=== PATIENT | female | born 1955 | race Caucasian/White ===

== ENCOUNTER 2022-07-10 13:05 | Outpatient (CLI) | payer OTHER, SELFPAY | END 2022-07-10 13:06 | disposition home or self-care (01) | PROVIDERS: Visit Provider Student in an Organized Health Care Education/Training Program | DX: R30.0 Dysuria (principal); N39.0 Urinary tract infection, site not specified | CPT/HCPCS: 87086; 87186 ==

== ENCOUNTER 2022-08-07 15:40 | Emergency (ER) | payer MEDICAID, SELFPAY ==
[2022-08-07 15:41] VITALS: BP 138/89; PULSE 104; RESP 18; TEMP 36.4; O2SAT 93; BMI 25.8
--- NOTE | 2022-08-07 15:53 | CRLHL7_ITS ---
For Patients: As a result of the Cures Act, medical imaging exams and procedure reports are released immediately into your electronic medical record. You may view this report before your referring provider. If you have questions, please contact your health care provider. Indication: Fall Technique: Volumetric multidetector CT images of the cervical spine were obtained without the administration of IV contrast. Comparison: CT cervical spine September 03, 2019 Findings: The cervical vertebral body heights are grossly maintained with minimal endplate Schmorl`s defects. There is mild straightening of the normal cervical lordosis without significant spondylolisthesis. There is no displaced fracture or dislocation. There is moderate multilevel degenerative disc disease with disc height loss and marginal osteophyte formation. There is moderate degenerative change of the atlantoaxial joint. There is moderate facet arthrosis. The paraspinous soft tissues are grossly within normal limits. Impression: Moderate multilevel degenerative changes of the cervical spine with positional versus spasmodic straightening. No evidence of displaced fracture. Please note that all CT scans at this facility use dose modulation, iterative reconstruction, and/or weight-based dosing when appropriate to reduce radiation dose to as low as reasonably achievable. Dictated by Bebeto Urena MD @ 08/07/2022 5:08:04 PM (Electronically Signed)
--- NOTE | 2022-08-07 15:53 | CRLHL7_ITS ---
For Patients: As a result of the Cures Act, medical imaging exams and procedure reports are released immediately into your electronic medical record. You may view this report before your referring provider. If you have questions, please contact your health care provider. Indication: Fall Technique: Volumetric multidetector CT images of the facial bones were obtained without the administration of IV contrast. Comparison: None available. Findings: The partially visualized brain is normal in attenuation without evidence of midline shift or fluid collection. The paranasal sinuses are clear without evidence of air-fluid level. The bony orbits are grossly intact. There is no significant periorbital soft tissue swelling. The zygomatic arches are grossly intact. The bilateral maxillae are intact. The pterygoid plates are grossly intact. The nasal bones and anterior nasal spine are intact without displaced fracture. The mandible is grossly well located. The partially visualized cervical spine is grossly intact without displaced fracture. Impression: There is no evidence of definite displaced fracture. Please note that all CT scans at this facility use dose modulation, iterative reconstruction, and/or weight-based dosing when appropriate to reduce radiation dose to as low as reasonably achievable. Dictated by Bebeto Urena MD @ 08/07/2022 5:16:40 PM (Electronically Signed)
--- NOTE | 2022-08-07 15:53 | CRLHL7_ITS ---
For Patients: As a result of the Century Cures Act, medical imaging exams and procedure reports are released immediately into your electronic medical record. You may view this report before your referring provider. If you have questions, please contact your health care provider. Indication: Fall Technique: Volumetric multidetector CT images of the head were obtained without the administration of low osmolar intravenous contrast. Comparison: None available Findings: There is no intra-axial or extra-axial fluid collection. There is no mass effect or midline shift. There is global cortical atrophy with sulcal widening and ex vacuo dilatation of the lateral ventricles. There is moderate chronic small vessel disease change within the subcortical and periventricular white matter. Otherwise, the brain parenchyma is preserved in attenuation and watters-white differentiation. The orbits and their contents are grossly within normal limits. There is demonstration of a small osteoma along the frontal calvarium otherwise, the bony calvarium is intact. The paranasal sinuses are clear. The mastoid air cells are well aerated. Impression: Age-related and chronic small-vessel disease changes of the brain without acute intracranial abnormality. Please note that all CT scans at this facility use dose modulation, iterative reconstruction, and/or weight-based dosing when appropriate to reduce radiation dose to as low as reasonably achievable. Dictated by Bebeto Urena MD @ 08/07/2022 4:57:31 PM (Electronically Signed)
--- NOTE | 2022-08-07 16:42 | ED.GENADULT ---
HPI - General Adult General Chief complaint: Skin/Abscess/Foreign Body Stated complaint: Abrasions Time Seen by Provider: 08/07/22 15:49 Source: patient Mode of arrival: EMS Limitations: no limitations History of Present Illness HPI narrative: 67-year-old female coming in today after falling while she was out for a walk. She fell on her palms of the hands as well as on her face. She is complaining of anterior facial pain and headache. She denies any neck or back pain. She denies changes in her vision or hearing. She denies any nausea or vomiting. She states she was walking too fast and lost her balance. Patient does have history of Parkinson's disease. Patient is not on any blood thinners. Related Data Home Medications Medication Instructions Recorded Confirmed acetaminophen 500 mg tablet 500 mg PO 07/10/22 07/10/22 acyclovir 400 mg tablet 400 mg PO 07/10/22 07/10/22 aspirin 81 mg tablet,delayed 81 mg PO 07/10/22 07/10/22 release blood sugar diagnostic (Rock ControlTouch #10 ea 07/10/22 07/10/22 Verio test strips) blood-glucose meter (ChemoCentryxuch #1 ea 07/10/22 07/10/22 Verio Flex Meter) buspirone 10 mg tablet 10 mg PO 07/10/22 07/10/22 canagliflozin 300 mg tablet 300 mg PO 07/10/22 07/10/22 (Invokana) carbidopa 25 mg-levodopa 100 mg 1 tab PO 07/10/22 07/10/22 tablet fenofibrate 160 mg tablet 160 mg PO 07/10/22 07/10/22 gabapentin 600 mg tablet 600 mg PO 07/10/22 07/10/22 glucose 4 gram chewable tablet 4 g PO 07/10/22 07/10/22 (TRUEplus Glucose) insulin glargine 100 unit/mL (3 unit subcut 07/10/22 07/10/22 mL) subcutaneous pen (Lantus Solostar U-100 Insulin) lancets 33 gauge (Rock ControlTouch Dellionel #100 ea 07/10/22 07/10/22 Plus Lancet) lisinopril 5 mg tablet 5 mg PO 07/10/22 07/10/22 metformin 500 mg tablet,extended mg PO 07/10/22 07/10/22 release 24 hr olanzapine 20 mg tablet 20 mg PO 07/10/22 07/10/22 pantoprazole 20 mg tablet,delayed tab PO 07/10/22 07/10/22 release pen needle, diabetic 31 gauge x #50 ea 07/10/22 07/10/22/ (UltiCare Pen Needle) rosuvastatin 10 mg tablet 10 mg PO 07/10/22 07/10/22 semaglutide 0.25 mg or 0.5 mg (2 mg subcut 07/10/22 07/10/22 mg/1.5 mL) subcutaneous pen injector (Ozempic) sitagliptin phosphate 50 mg tablet 50 mg PO 07/10/22 07/10/22 (Januvia) sumatriptan succinate 50 mg tablet mg PO 07/10/22 07/10/22 venlafaxine 75 mg capsule,extended mg PO 07/10/22 07/10/22 release 24 hr Allergies Allergy/AdvReac Type Severity Reaction Status Date / Time Penicillins Allergy Severe Difficulty Verified 07/10/22 13:09 Breathing Sulfa (Sulfonamide Allergy Severe Difficulty Verified 07/10/22 13:09 Antibiotics) Breathing Review of Systems Status of ROS: Reports: 10 or more systems reviewed and unremarkable except as noted in History and below [facility] Medical History Dysuria Social History Smoking Status: Never smoker Exam Narrative: Exam Narrative: Well-nourished well-developed patient in no acute distress. Alert and oriented. Answers questions appropriately. Mood and affect are appropriate. Thoughts are goal oriented and rational. No tangential or magical thinking noted. Patient speaks in full sentences without needing to catch her breath. Speech is not slurred or pressured. HEENT: Normocephalic. Pupils are equally round reactive to light. Extraocular muscles are intact. Conjunctivae are moist without any icterus noted. Moist mucous membranes. Posterior pharynx is normal. Neck is soft without any lymphadenopathy or thyromegaly. No masses are appreciated. She has abrasions the center of the forehead between the eyebrows and across the bridge of the nose. She has tenderness in that area. She has no tenderness around the eyes her cheek bones. She has no septal hematoma noted. No trauma identified inside the mouth. Teeth are intact. Cardiovascular: Heart is regular rate and rhythm S1 and S2 are present without any murmurs. Lungs: Clear to auscultation bilaterally no wheezes rhonchi or rales are appreciated. Patient takes deep breaths without any discomfort. Abdomen: Soft and nontender nondistended with normal bowel sounds. No guarding or rebound. No masses or organomegaly appreciated. Extremities: Bilateral lower extremities are without edema. Normal DP and PT pulses. Skin: Well perfused without any obvious rashes. Back: Normal appearance. Patient has no tenderness to palpation of this thoracic and lumbar spine. She has mild tenderness to palpation around the neck para spinal musculature as well as over the cervical spine. Const: Vital Signs, click to edit/add: Vital Signs - 24 hr 08/07/22 15:41 Temperature 97.5 F L Pulse Rate [Right Pulse Oximeter] 104 H Respiratory Rate 18 Blood Pressure [Ri ght Upper Arm] 138/89 Pulse Oximetry 93 Oxygen Delivery Me thod Room Air Course Course Hospital Course: CT of the head, face and cervical spine were done. All of these were unremarkable. Vital Signs Vital signs: Initial Vital Signs Temperature 97.5 F L 08/07/22 15:41 Temperature Source Temporal Artery Scan 08/07/22 15:41 Pulse Rate 104 H 08/07/22 15:41 Respiratory Rate 18 08/07/22 15:41 Blood Pressure 138/89 08/07/22 15:41 Blood Pressure Mean 105 08/07/22 15:41 Blood Pressure Position Sitting 08/07/22 15:41 Pulse Oximetry 93 08/07/22 15:41 Oxygen Delivery Method 08/07/22 15:41 Vital Signs Temperature 97.5 F L 08/07/22 15:41 Pulse Rate 104 H 08/07/22 15:41 Respiratory Rate 18 08/07/22 15:41 Blood Pressure 138/89 08/07/22 15:41 Pulse Oximetry 93 08/07/22 15:41 Oxygen Delivery Method 08/07/22 15:41 Temperature 97.5 F L 08/07/22 15:41 Pulse Rate 104 H 08/07/22 15:41 Respiratory Rate 18 08/07/22 15:41 Blood Pressure 138/89 08/07/22 15:41 Pulse Oximetry 93 08/07/22 15:41 Oxygen Delivery Method 08/07/22 15:41 Medical Decision Making MDM Narrative Medical decision making narrative: 67-year-old female status post fall, imaging negative. We discussed symptomatic treatment reasons for follow-up. Patient was agreeable and had no other questions. Imaging Data CT scan - head: Attestation: I have reviewed the pertinent imaging results. Radiologist's impression: Volumetric multidetector CT images of the head were obtained without the administration of low osmolar intravenous contrast. Comparison: None available Findings: There is no intra-axial or extra-axial fluid collection. There is no mass effect or midline shift. There is global cortical atrophy with sulcal widening and ex vacuo dilatation of the lateral ventricles. There is moderate chronic small vessel disease change within the subcortical and periventricular white matter. Otherwise, the brain parenchyma is preserved in attenuation and watters-white differentiation. The orbits and their contents are grossly within normal limits. There is demonstration of a small osteoma along the frontal calvarium otherwise, the bony calvarium is intact. The paranasal sinuses are clear. The mastoid air cells are well aerated. Impression: Age-related and chronic small-vessel disease changes of the brain without acute intracranial abnormality. CT cervical spine: Attestation: I have reviewed the pertinent imaging results. Radiologist's impression: CT cervical spine September 03, 2019 Findings: The cervical vertebral body heights are grossly maintained with minimal endplate Schmorl`s defects. There is mild straightening of the normal cervical lordosis without significant spondylolisthesis. There is no displaced fracture or dislocation. There is moderate multilevel degenerative disc disease with disc height loss and marginal osteophyte formation. There is moderate degenerative change of the atlantoaxial joint. There is moderate facet arthrosis. The paraspinous soft tissues are grossly within normal limits. Impression: Moderate multilevel degenerative changes of the cervical spine with positional versus spasmodic straightening. No evidence of displaced fracture. CT facial bones: Attestation: I have reviewed the pertinent imaging results. Radiologist's impression: Volumetric multidetector CT images of the facial bones were obtained without the administration of IV contrast. Comparison: None available. Findings: The partially visualized brain is normal in attenuation without evidence of midline shift or fluid collection. The paranasal sinuses are clear without evidence of air-fluid level. The bony orbits are grossly intact. There is no significant periorbital soft tissue swelling. The zygomatic arches are grossly intact. The bilateral maxillae are intact. The pterygoid plates are grossly intact. The nasal bones and anterior nasal spine are intact without displaced fracture. The mandible is grossly well located. The partially visualized cervical spine is grossly intact without displaced fracture. Impression: There is no evidence of definite displaced fracture. Discharge Plan Discharge Clinical Impression: Facial trauma, Fall Patient Disposition: Home, Self-Care Condition: Stable Additional Instructions: Okay to take Tylenol as needed for discomfort. Okay to use heat to the neck if soreness increases tomorrow-do not apply heat directly to skin. Follow-up with your primary care provider as needed. Prescriptions: No Action Ozempic 0.25 mg or 0.5 mg(2 mg/1.5 mL) pen injector subcut (DME) lancets [Rock ControlTouch Delica Plus Lancet] [facility] See Rx Instructions .ROUTE .MEDSUPPLY Qty: 100 Rx Instructions: As directed (DME) OneTouch Verio test strips Strip See Rx Instructions .ROUTE .MEDSUPPLY Qty: 10 Rx Instructions: As directed (DME) blood-glucose meter [[facility] Verio Flex meter[facility]ructions .ROUTE .MEDSUPPLY Qty: 1 Rx Instructions: As directed rosuvastatin 10 mg tablet 10 mg PO Label Comments: TAKE ONE TABLET BY MOUTH DAILY. this replaces atorvastatin. olanzapine 20 mg tablet 20 mg PO Label Comments: TAKE ONE TABLET BY MOUTH AT BEDTIME acetaminophen 500 mg tablet 500 mg PO Label Comments: TAKE TWO TABLETS BY MOUTH THREE TIMES DAILY FOR PAIN sumatriptan succinate 50 mg tablet PO Label Comments: Take 1 tablet by mouth at onset of headache for migraine may repeat in 2 hours. Max 4 tablets in 24 hours. gabapentin 600 mg tablet 600 mg PO Label Comments: TAKE ONE TABLET BY MOUTH TWICE DAILY venlafaxine 75 mg capsule,extended release 24hr PO Label Comments: TAKE THREE CAPSULES BY MOUTH DAILY Invokana 300 mg tablet 300 mg PO Label Comments: TAKE ONE TABLET BY MOUTH IN THE MORNING BEFORE BREAKFAST acyclovir 400 mg tablet 400 mg PO Label Comments: TAKE ONE TABLET BY MOUTH TWICE DAILY Januvia 50 mg tablet 50 mg PO Label Comments: TAKE ONE TABLET BY MOUTH DAILY fenofibrate 160 mg tablet 160 mg PO Label Comments: TAKE ONE TABLET BY MOUTH DAILY. APPOINTMENT NEEDED FOR FURTHER REFILLS. carbidopa-levodopa 25-100 mg tablet 1 tab PO Label Comments: TAKE TWO TABLETS BY MOUTH DAILY FOR RESTLESS LEGS. buspirone 10 mg tablet 10 mg PO Label Comments: TAKE 2 TABLETS by mouth TWICE DAILY aspirin 81 mg tablet,delayed release (DR/EC) 81 mg PO Label Comments: TAKE ONE TABLET BY MOUTH DAILY insulin glargine [Lantus Solostar U-100 Insulin] 100 unit/mL (3 mL) insulin pen subcut metformin 500 mg tablet extended release 24 hr PO Label Comments: TAKE 2 TABLETS BY MOUTH TWICE A DAY WITH FOOD pantoprazole 20 mg tablet,delayed release (DR/EC) PO lisinopril 5 mg tablet 5 mg PO Label Comments: TAKE ONE TABLET BY MOUTH DAILY (DME) pen needle, diabetic [UltiCare Pen Needle] 31 gauge x 3/16 needle See Rx Instructions .ROUTE .MEDSUPPLY Qty: 50 Label Comments: USE 1 PEN NEEDLE DAILY DIRECTED. Rx Instructions: As directed glucose [TRUEplus Glucose] 4 gram tablet,chewable 4 g PO Label Comments: TAKE 3-4 TABLETS (12-16 GRAMS) BY MOUTH EVERY HOUR NEEDED FOR LOW BLOOD SUGAR. Follow Up/Referrals: Elizabeth Miller MD [Primary Care Provider] - Stand Alone Forms: [facility] Info Instructions
== END 2022-08-07 17:35 | disposition home or self-care (01) ==
PROVIDERS: Emergency Provider Family Medicine
DX: S00.31XA Abrasion of nose, initial encounter (principal); S00.81XA Abrasion of other part of head, initial encounter; W18.39XA Other fall on same level, initial encounter; Y93.01 Activity, walking, marching and hiking; Y92.9 Unspecified place or not applicable; Y99.8 Other external cause status
CPT/HCPCS: 70450; 70486; 72125; 99284